=== PATIENT | male | born 1950 | race Caucasian/White ===

== ENCOUNTER 2021-03-13 13:49 | Inpatient (IN) | payer MEDICARE ==
[~2021-03-13] VITALS: Ht 175.3 cm; Wt 145.0 kg
[2021-03-13 15:44] LABS: INR 1.15 (0.9-1.2); PROTHROMBIN TIME 14.1 SECONDS (11.8-13.4)
[2021-03-13 16:00] LABS: ALBUMIN 3.3 g/dL (3.4-5.0); BILIRUBIN - TOTAL 0.2 mg/dL (0.2-1.0); BUN/CREAT RATIO (CALC) 20.3 RATIO; CREATININE 3.16 mg/dL (0.67-1.17); GLOBULIN (CALCULATION) 2.7 g/dL
[2021-03-13 17:41] LABS: BILIRUBIN NEGATIVE (NEGATIVE); BLOOD NEGATIVE Ery/uL (NEGATIVE); CLARITY CLEAR (CLEAR); COLOR YELLOW (YELLOW); GLUCOSE (U) NORMAL (NORMAL); LEUKOCYTES 1+ Leu/uL (NEGATIVE); NITRITE NEGATIVE (NEGATIVE); PROTEIN 1+ mg/dL (NEGATIVE); UROBILINOGEN 0.2 mg/dL (0.2-1.0)
[2021-03-13 17:47] LABS: BACTERIA 4+; SQUAMOUS EPITHELIAL CELLS RARE; URINARY RBC RARE
[2021-03-14] MEDS ORDERED: GABAPENTIN800 MG PO (05:39)
[2021-03-14] MEDS ORDERED: OXYCODONE HCL15 MG PO (05:40)
[2021-03-14] MEDS ORDERED: PERCOCET 10-321 EACH PO (05:41)
[2021-03-14] MEDS ORDERED: TORSEMIDE20 MG PO (05:41)
[2021-03-14 06:10] LABS: BASOPHIL 0.7 % (0-2); EOSINOPHIL 2.4 % (0-7); HCT 26.4 % (42.0-52.0); HGB 7.9 g/dl (13.2-18.0); LYMPHOCYTE 28.1 % (15-48); MCH 29.2 pg (25.0-31.0); MCHC 29.9 g/dL (32.0-36.0); MCV 97.4 fL (78.0-100.0); MONOCYTE 6.8 % (0-12); MPV 10.6 fL (6.0-9.5); NEUTROPHIL 60.8 % (41-80); NRBC 0.5; PLT 113 K/uL (150-400); RBC 2.71 M/uL (4.70-6.00); WBC 4.2 K/uL (4.0-10.5)
[2021-03-14 06:30] LABS: ALBUMIN 3.2 g/dL (3.4-5.0); BILIRUBIN - TOTAL 0.4 mg/dL (0.2-1.0); BUN/CREAT RATIO (CALC) 20.9 RATIO; CREATININE 2.87 mg/dL (0.67-1.17); GLOBULIN (CALCULATION) 2.8 g/dL; MAGNESIUM 2.1 mg/dL (1.8-2.4); POTASSIUM 3.6 mmol/L (3.5-5.1)
== END 2021-03-14 16:15 | disposition home health service (06) | DRG 378 ==
LOC: FER 13:49 → FMS 17:30
PROVIDERS: Emergency Medicine; ADMIT Family Medicine
DX: K92.1 Melena (principal); N17.9 Acute kidney failure, unspecified; I12.9 Hypertensive chronic kidney disease with stage 1 through stage 4 chronic kidney disease, or unspecified chronic kidney disease; N18.30 Chronic kidney disease, stage 3 unspecified; D63.1 Anemia in chronic kidney disease; G47.33 Obstructive sleep apnea (adult) (pediatric); Z20.822 Contact with and (suspected) exposure to COVID-19; G20 Parkinson's disease; E11.22 Type 2 diabetes mellitus with diabetic chronic kidney disease; M10.9 Gout, unspecified; I48.91 Unspecified atrial fibrillation; Z79.01 Long term (current) use of anticoagulants; Z79.84 Long term (current) use of oral hypoglycemic drugs; Z79.899 Other long term (current) drug therapy; Z83.3 Family history of diabetes mellitus; Z82.49 Family history of ischemic heart disease and other diseases of the circulatory system; Z95.0 Presence of cardiac pacemaker
CPT/HCPCS: 36415; 36430; 71045; 78278; 80048; 80053; 81001; 82728; 83540; 83550; 83735; 85025; 85610; 85730; 86850; 86900; 86901; 86922; 87088; 93005; 94010; 94760; 94762; A4641; A9560; C9113; J7040; P9016; U0002

== ENCOUNTER 2021-07-14 16:43 | Emergency (ER) | payer MEDICARE ==
[~2021-07-14 16:43] MED LIST: GABAPENTIN800 MG PO; OXYCODONE HCL15 MG PO; PERCOCET 10-321 EACH PO; TORSEMIDE20 MG PO
[2021-07-14 17:52] LABS: BASOPHIL 0.7 % (0-2); EOSINOPHIL 2.7 % (0-7); HCT 20.5 % (42.0-52.0); LYMPHOCYTE 31.2 % (15-48); MCH 31.7 pg (25.0-31.0); MCHC 30.7 g/dL (32.0-36.0); MONOCYTE 8.2 % (0-12); MPV 10.3 fL (6.0-9.5); NEUTROPHIL 55.9 % (41-80); NRBC 1.6; PLT 116 K/uL (150-400); RBC 1.99 M/uL (4.70-6.00); RDW 18.3 % (11.5-14.0); WBC 4.5 K/uL (4.0-10.5)
[2021-07-14 18:01] LABS: HGB 6.3 g/dl (13.2-18.0)
[2021-07-14 18:23] LABS: CREATININE 3.78 mg/dL (0.67-1.17); POTASSIUM 3.6 mmol/L (3.5-5.1)
[2021-07-15 06:32] LABS: HCT 27.6 % (42.0-52.0); HGB 8.7 g/dL (13.2-18.0)
[2021-07-15 06:58] LABS: CREATININE 3.5 mg/dL (0.67-1.17); POTASSIUM 3.5 mmol/L (3.5-5.1)
== END 2021-07-15 08:08 | disposition home or self-care (01) ==
LOC: FER 16:43
PROVIDERS: Emergency Medicine Emergency Medical Services; Nurse Practitioner Family
DX: D50.0 Iron deficiency anemia secondary to blood loss (chronic) (principal); K62.5 Hemorrhage of anus and rectum; N17.9 Acute kidney failure, unspecified; E11.22 Type 2 diabetes mellitus with diabetic chronic kidney disease; N18.4 Chronic kidney disease, stage 4 (severe); I50.9 Heart failure, unspecified; G20 Parkinson's disease
CPT/HCPCS: 36415; 36430; 71045; 74018; 80048; 82270; 83605; 85014; 85018; 85025; 86850; 86900; 86901; 86922; J7050; P9016

== ENCOUNTER → 2021-08-28 | Day surgery (SDC) | payer MEDICARE ==
[~2021-08-28] VITALS: Ht 172.7 cm; Wt 131.8 kg
[~2021-08-28] MED LIST changes: +ACETAMINOPHEN500 M1 PO; +ALLOPURINOL 30300 MG PO; +AMARYL2 MG PO; +CARBIDOPA-LEVO1 EAC3 PO; +CARBIDOPA-LEVO1 EAC4 PO; +CLONIDINE HCL0.2 MG PO; +COREG25 MG PO; +CYMBALTA 30MG C30 MG PO; +ELAVIL50 MG PO; +FENOFIBRATE160 MG PO; +FLOMAX0.4 MG PO; +HYDRALAZINE25 MG PO; +JANUVIA50 MG PO; +LOVAZA1 GM PO; +MOVANTIK25 MG PO; +NEURONTIN400 MG PO; +OXY-IR 5MG5 MG PO; +PROTONIX 40MG T40 MG PO; +VALACYCLOVIR500 MG PO; +VITAMIN D-40010 MCG PO; +XARELTO15 MG PO; +ZOCOR40 M1 PO
[2021-08-28 11:55] LABS: HCT 36.1 % (42.0-52.0); HGB 11.4 g/dl (13.2-18.0); MCHC 31.6 g/dL (32.0-36.0); MCV 98.1 fL (78.0-100.0); MPV 10.3 fL (6.0-9.5); RBC 3.68 M/uL (4.70-6.00); RDW 13.4 % (11.5-14.0); WBC 3.9 K/uL (4.0-10.5)
== END | disposition home or self-care (01) ==
LOC: FAS 10:56
PROVIDERS: Surgery
DX: K29.70 Gastritis, unspecified, without bleeding (principal); K59.00 Constipation, unspecified; I25.10 Atherosclerotic heart disease of native coronary artery without angina pectoris; G20 Parkinson's disease; I13.0 Hypertensive heart and chronic kidney disease with heart failure and stage 1 through stage 4 chronic kidney disease, or unspecified chronic kidney disease; E11.22 Type 2 diabetes mellitus with diabetic chronic kidney disease; N18.4 Chronic kidney disease, stage 4 (severe); I50.9 Heart failure, unspecified; I48.0 Paroxysmal atrial fibrillation; G47.30 Sleep apnea, unspecified; E78.00 Pure hypercholesterolemia, unspecified; Z87.891 Personal history of nicotine dependence; Z79.01 Long term (current) use of anticoagulants; Z79.84 Long term (current) use of oral hypoglycemic drugs; Z79.899 Other long term (current) drug therapy
CPT/HCPCS: 36415; J7030

== ENCOUNTER 2021-10-28 17:42 | Inpatient (IN) | payer MEDICARE ==
[~2021-10-28] VITALS: Ht 172.7 cm; Wt 129.4 kg
[2021-10-28 19:26] LABS: BASOPHIL 0.4 % (0-2); EOSINOPHIL 0.7 % (0-7); HCT 35.7 % (42.0-52.0); HGB 11.6 g/dl (13.2-18.0); LYMPHOCYTE 17.9 % (15-48); MCH 30.1 pg (25.0-31.0); MCHC 32.5 g/dL (32.0-36.0); MCV 92.5 fL (78.0-100.0); MONOCYTE 9.2 % (0-12); MPV 10.4 fL (6.0-9.5); NEUTROPHIL 70.5 % (41-80); NRBC 0; PLT 149 K/uL (150-400); RBC 3.86 M/uL (4.70-6.00); RDW 14.8 % (11.5-14.0); WBC 9.4 K/uL (4.0-10.5)
[2021-10-28 19:46] LABS: BUN/CREAT RATIO (CALC) 18.1 RATIO; CREATININE 2.82 mg/dL (0.67-1.17); POTASSIUM 3.3 mmol/L (3.5-5.1)
--- NOTE | 2021-10-29 00:35 | NUR ---
PATIENT ALERT AND ORIENTED WHEN ARRIVING TO FLOOR AT BEDSIDE. BED LOCKED IN LOW POSITION. CALL LIGHT IN REACH. ABLE TO VOICE NEEDS.
[2021-10-29] MEDS ORDERED: DORZOLAMIDE 2%10 ML EYERT (01:03)
[2021-10-29] MEDS ORDERED: METOLAZONE2.5 MG PO (01:04)
[2021-10-29] MEDS ORDERED: NORTRIPTYLINE H50 MG PO (01:05)
[2021-10-29] MEDS ORDERED: FARXIGA5 MG PO (01:06)
--- NOTE | 2021-10-29 06:34 | NUR ---
PT BLOOD SUGAR DROPPED TO 36 MD NOTIFIED NEW ORDER FOR [id number]. PATIENT ALERT AND ORIENTED AT THIS TIME. WILL CONTINUE TO MONITIOR.
[2021-10-29 09:13] LABS: ALBUMIN 3.4 g/dL (3.4-5.0); BILIRUBIN - DIRECT 0.2 mg/dL (0.00-0.20); BILIRUBIN - TOTAL 0.5 mg/dL (0.2-1.0); GLOBULIN (CALCULATION) 3.5 g/dL; TOTAL PROTEIN 6.9 g/dL (6.4-8.2)
[2021-10-29 10:52] LABS: BILIRUBIN NEGATIVE (NEGATIVE); BLOOD NEGATIVE Ery/uL (NEGATIVE); CLARITY CLEAR (CLEAR); COLOR YELLOW (YELLOW); GLUCOSE (U) 2+ mg/dL (NORMAL); LEUKOCYTES NEGATIVE Leu/uL (NEGATIVE); NITRITE NEGATIVE (NEGATIVE); PROTEIN 2+ mg/dL (NEGATIVE); SPECIFIC GRAVITY 1.015 (1.001-1.030); UROBILINOGEN 0.2 mg/dL (0.2-1.0)
[2021-10-29 11:04] LABS: URINARY RBC RARE
[2021-10-29 11:05] LABS: BACTERIA 1+; SQUAMOUS EPITHELIAL CELLS RARE
[2021-10-29 11:55] LABS: BASOPHIL 0.1 % (0-2); EOSINOPHIL 0.2 % (0-7); HCT 30.1 % (42.0-52.0); HGB 9.7 g/dl (13.2-18.0); LYMPHOCYTE 7.1 % (15-48); MCH 29.8 pg (25.0-31.0); MCHC 32.2 g/dL (32.0-36.0); MCV 92.6 fL (78.0-100.0); MPV 10.4 fL (6.0-9.5); NEUTROPHIL 83.2 % (41-80); NRBC 0; PLT 111 K/uL (150-400); RBC 3.25 M/uL (4.70-6.00); RDW 14.9 % (11.5-14.0); WBC 11.4 K/uL (4.0-10.5)
[2021-10-29 12:16] LABS: BUN/CREAT RATIO (CALC) 17.1 RATIO; CREATININE 2.81 mg/dL (0.67-1.17); POTASSIUM 2.7 mmol/L (3.5-5.1)
--- NOTE | 2021-10-30 06:17 | NUR ---
PATIENT'S BROUGHT PROVIDED COPIES OF ADVANCE DIRECTIVE, FAMILY WISHING DNR CODE STATUS. COPY PLACED IN CHART, PASS ON IN REPORT FOR INFORM MD OF REQUEST.
[2021-10-30 06:54] LABS: ALBUMIN 2.7 g/dL (3.4-5.0); ALKALINE PHOSHATASE 38 U/L (46-116); ALT <6 U/L (16-63); AST 16 U/L (15-37); BILIRUBIN - TOTAL 0.4 mg/dL (0.2-1.0); BUN 43 mg/dL (7-18); BUN/CREAT RATIO (CALC) 15.6 RATIO; CHLORIDE 109 mmol/L (98-107); CO2 (BICARBONATE) 17 mmol/L (21-32); CREATININE 2.75 mg/dL (0.67-1.17); GLOBULIN (CALCULATION) 3.4 g/dL; GLUCOSE 161 mg/dL (74-106); LIPASE 45 U/L (73-393); MAGNESIUM 1.2 mg/dL (1.8-2.4); POTASSIUM 2.9 mmol/L (3.5-5.1); TOTAL PROTEIN 6.1 g/dL (6.4-8.2)
[2021-10-30 06:58] LABS: BASOPHIL 0.2 % (0-2); EOSINOPHIL 0.2 % (0-7); HCT 30.1 % (42.0-52.0); HGB 9.8 g/dl (13.2-18.0); LYMPHOCYTE 10.2 % (15-48); MCH 30.6 pg (25.0-31.0); MCHC 32.6 g/dL (32.0-36.0); MCV 94.1 fL (78.0-100.0); MONOCYTE 5.9 % (0-12); MPV 10.8 fL (6.0-9.5); NEUTROPHIL 82.7 % (41-80); NRBC 0; PLT 108 K/uL (150-400); RDW 15.2 % (11.5-14.0); WBC 10.6 K/uL (4.0-10.5)
[2021-10-30 06:59] LABS: INR 2.41 (0.9-1.2); PROTHROMBIN TIME 25.3 SECONDS (11.8-13.4); PTT 52.1 SECONDS (24.4-34.7)
[2021-10-30 22:27] LABS: IRON % SATURATION 6.2 %SAT (20-50)
[2021-10-30 22:50] LABS: FOLIC ACID (SERUM) 8.9 ng/mL (8.6-58.9)
[2021-10-31 06:10] LABS: BASOPHIL 0.3 % (0-2); EOSINOPHIL 0.9 % (0-7); HCT 28.9 % (42.0-52.0); HGB 9.1 g/dl (13.2-18.0); LYMPHOCYTE 9.1 % (15-48); MCH 29.6 pg (25.0-31.0); MCHC 31.5 g/dL (32.0-36.0); MCV 94.1 fL (78.0-100.0); MPV 10.8 fL (6.0-9.5); NEUTROPHIL 83.9 % (41-80); NRBC 0; PLT 110 K/uL (150-400); RBC 3.07 M/uL (4.70-6.00); RDW 15.3 % (11.5-14.0); WBC 11.4 K/uL (4.0-10.5)
[2021-10-31 06:49] LABS: IRON % SATURATION 9.2 %SAT (20-50)
[2021-10-31 07:09] LABS: BUN 33 mg/dL (7-18); BUN/CREAT RATIO (CALC) 13.8 RATIO; C-REACTIVE PROTEIN >18.00 mg/dL (<=0.90); CHLORIDE 109 mmol/L (98-107); CO2 (BICARBONATE) 18 mmol/L (21-32); FOLIC ACID (SERUM) 13.9 ng/mL (8.6-58.9); GLUCOSE 182 mg/dL (74-106); POTASSIUM 3.6 mmol/L (3.5-5.1)
[2021-11-01 07:09] LABS: BASOPHIL 0.4 % (0-2); EOSINOPHIL 1.2 % (0-7); HCT 29.3 % (42.0-52.0); HGB 9.1 g/dl (13.2-18.0); LYMPHOCYTE 12.5 % (15-48); MCH 29.1 pg (25.0-31.0); MCHC 31.1 g/dL (32.0-36.0); MCV 93.6 fL (78.0-100.0); MONOCYTE 5.7 % (0-12); MPV 10.3 fL (6.0-9.5); NEUTROPHIL 79.3 % (41-80); NRBC 0; PLT 106 K/uL (150-400); RBC 3.13 M/uL (4.70-6.00); RDW 15.3 % (11.5-14.0); WBC 8.1 K/uL (4.0-10.5)
[2021-11-01 07:35] LABS: BUN/CREAT RATIO (CALC) 13.5 RATIO; CREATININE 2.08 mg/dL (0.67-1.17); POTASSIUM 3.7 mmol/L (3.5-5.1)
[2021-11-01] MEDS ORDERED: AUGMENTIN 500-1 EACH PO (13:37)
== END 2021-11-01 15:39 | disposition home or self-care (01) | DRG 871 ==
LOC: FER 17:42 → FMS 20:44
PROVIDERS: Hospitalist; Internal Medicine; Nurse Practitioner Family; ADMIT Internal Medicine
PROC: 3E03329 Introduction of Other Anti-infective into Peripheral Vein, Percutaneous Approach (ICD-10-PCS; principal; 2021-10-28)
PROC: 05HY33Z Insertion of Infusion Device into Upper Vein, Percutaneous Approach (ICD-10-PCS; 2021-10-29)
DX: A41.9 Sepsis, unspecified organism (principal); G93.41 Metabolic encephalopathy; N17.9 Acute kidney failure, unspecified; N18.4 Chronic kidney disease, stage 4 (severe); K52.9 Noninfective gastroenteritis and colitis, unspecified; E86.0 Dehydration; E11.649 Type 2 diabetes mellitus with hypoglycemia without coma; Z66 Do not resuscitate; I48.0 Paroxysmal atrial fibrillation; G20 Parkinson's disease; I12.9 Hypertensive chronic kidney disease with stage 1 through stage 4 chronic kidney disease, or unspecified chronic kidney disease; E11.22 Type 2 diabetes mellitus with diabetic chronic kidney disease; N40.0 Benign prostatic hyperplasia without lower urinary tract symptoms; E78.5 Hyperlipidemia, unspecified; D17.79 Benign lipomatous neoplasm of other sites; K80.20 Calculus of gallbladder without cholecystitis without obstruction; J44.9 Chronic obstructive pulmonary disease, unspecified; E83.42 Hypomagnesemia; E87.6 Hypokalemia; N40.1 Benign prostatic hyperplasia with lower urinary tract symptoms; R33.8 Other retention of urine; K63.89 Other specified diseases of intestine; K21.9 Gastro-esophageal reflux disease without esophagitis; Z95.0 Presence of cardiac pacemaker; Z95.5 Presence of coronary angioplasty implant and graft; Z98.49 Cataract extraction status, unspecified eye; Z79.899 Other long term (current) drug therapy; Z87.891 Personal history of nicotine dependence; Z79.01 Long term (current) use of anticoagulants; Z79.84 Long term (current) use of oral hypoglycemic drugs
CPT/HCPCS: 36415; 80048; 80053; 80076; 81001; 82607; 82746; 83036; 83540; 83550; 83605; 83690; 83735; 83880; 84100; 84145; 85025; 85610; 85730; 86140; 87040; 87045; 87046; 87205; 87449; 94010; C9113; J1170; J2405; J2543; J3475; J3480; J7030